=== PATIENT | female | born 1970 | race African-American/Black ===

== ENCOUNTER → 2017-06-01 | Outpatient (CLI) | payer OTHER | END | disposition home or self-care (01) | LOC: MA 12:44 | PROC: BH02ZZZ Plain Radiography of Bilateral Breasts (ICD-10-PCS; principal; 2017-06-01) | DX: R92.8 Other abnormal and inconclusive findings on diagnostic imaging of breast (principal) | CPT/HCPCS: G0204; G0206 ==

== ENCOUNTER → 2017-06-27 | Outpatient (CLI) | payer OTHER | END | disposition home or self-care (01) | LOC: US 10:45 | PROC: BH40ZZZ Ultrasonography of Right Breast (ICD-10-PCS; principal; 2017-06-27) | DX: M79.671 Pain in right foot (principal) | CPT/HCPCS: 76641 ==

== ENCOUNTER 2017-07-27 08:13 | Day surgery (SDC) | payer OTHER ==
[2017-07-25 10:51] LABS: BASOPHIL % 1.1 % (0-2); PLATELET COUNT 229 x10^3mcL (130-400); RED CELL DISTRIBUTION WIDTH 14.1 % (11.5-14.5)
[2017-07-25 11:05] LABS: ALBUMIN 3.8 g/dL (3.4-5.0); ALKALINE PHOSPHATASE 121 U/L (46-116); ALT/SGPT 38 U/L (14-59); AST/SGOT 37 U/L (15-37); BILIRUBIN TOTAL 0.28 mg/dL (0.20-1.00); CALCIUM 9.2 mg/dL (8.5-10.1); CARBON DIOXIDE 34.2 mmol/L (21-32); CHLORIDE SERUM 105 mmol/L (98-107); CREATININE SERUM 0.8 mg/dL (0.6-1.0); GFR1 > 60 mL/min; GLUCOSE SERUM 80 mg/dL (74-106); POTASSIUM SERUM 3.9 mmol/L (3.5-5.1); SODIUM SERUM 143 mmol/L (136-145); TOTAL PROTEIN, SERUM 8.2 g/dL (6.4-8.2)
[2017-07-25 11:09] LABS: CHOLESTEROL/HDL RATIO 2.3
[2017-07-25 11:44] LABS: T3 TOTAL 1.1 ng/mL
[2017-07-25 13:31] LABS: FREE T4 0.99 ng/dL (0.76-1.46); FREE THYROXINE INDEX 3.3 ug/dL (1.4-4.5); T4(THYROXINE) 9.5 ug/dL (4.7-13.3)
[~2017-07-27] VITALS: Ht 172.7 cm; Wt 89.3 kg
[2017-07-27 08:38] VITALS: BP 126/78
[2017-07-27 15:25] VITALS: BP 121/79
== END 2017-07-27 14:50 | disposition home or self-care (01) ==
LOC: DS 08:13 → MA 09:00 → DS 09:00 → OR 10:30 → DS 14:50
PROVIDERS: Surgery
PROC: 0HBT0ZX Excision of Right Breast, Open Approach, Diagnostic (ICD-10-PCS; principal; 2017-07-27 10:30)
DX: D24.1 Benign neoplasm of right breast (principal)
CPT/HCPCS: 84439; J0690; J2001; J2250; J2704; J3010; J3490; J7120